=== PATIENT | female | born 1990 | race Caucasian/White ===

== ENCOUNTER 2021-03-02 15:49 | Emergency (ER) | payer OTHER ==
[2021-03-02] MEDS ORDERED: PREDNISONE 20MG20 MG PO (18:54)
[2021-03-02] MEDS ORDERED: CYCLOBENZAPRINE10 MG PO (18:54)
== END 2021-03-02 19:26 | disposition home or self-care (01) ==
LOC: FER 15:49
DX: R20.2 Paresthesia of skin (principal)
CPT/HCPCS: 70450; 72125; J1100